=== PATIENT | male | born 1975 | race African-American/Black ===

== ENCOUNTER 2017-07-29 15:29 | Emergency (ER) | payer OTHER ==
[~2017-07-29] VITALS: Ht 198.1 cm; Wt 122.5 kg
[2017-07-29 15:58] LABS: MCH 31.5 PG (29.0-34.0); MCHC 33.6 G/DL (30.0-36.0); MEAN PLAT.VOLUME 9.2 uM^3 (9.0-12.4); PLATELET COUNT 257 K/uL (156-360); RBC DIS.WIDTH-CV 12.8 % (11.8-14.6); RBC DIS.WIDTH-SD 44.5 % (39-53); RED BLOOD COUNT 4.47 M/uL (4.00-5.50); WHITE BLOOD COUNT 6.9 K/uL (4.1-10.2)
[2017-07-29 16:08] LABS: CHLORIDE 108 mEq/L (99-109); POTASSIUM 3.9 mEq/L (3.7-5.4); SODIUM 142 mEq/L (136-147)
[2017-07-29 16:10] LABS: GLUCOSE 111 mg/dL (70-99)
[2017-07-29 16:11] LABS: ANION GAP 9 MEQ/L (2-14)
[2017-07-29 16:14] LABS: UREA NITROGEN (BUN) 14 mg/dL (9-23)
[2017-07-29 16:16] LABS: GFR ESTIMATE (CALCULATED) > 59 mL/min/
[2017-07-29] MEDS ORDERED: ANUSOL HC,ANUCO25 MG PR (17:42)
[2017-07-29] MEDS ORDERED: MIRALAX255 GM PO (17:42)
[2017-07-29 18:14] VITALS: BP 136/79
[2017-08-03 09:12] LABS: POC NON-PRINT COM 1 ND
== END 2017-07-29 18:15 | disposition home or self-care (01) ==
LOC: EME 15:29
PROVIDERS: Physician Assistant
DX: K62.5 Hemorrhage of anus and rectum (principal); K64.9 Unspecified hemorrhoids; K59.00 Constipation, unspecified; F17.200 Nicotine dependence, unspecified, uncomplicated
CPT/HCPCS: 74000; 80048; 82272; 85027; 86850; 86900; 86901; 99281; 99284

== ENCOUNTER 2017-09-02 16:48 | Emergency (ER) | payer OTHER ==
[~2017-09-02] VITALS: Ht 200.7 cm; Wt 124.7 kg
[~2017-09-02 16:48] MED LIST: ANUSOL HC,ANUCO25 MG PR; MIRALAX255 GM PO
[2017-09-02 17:18] LABS: ADD MIUA? NO; BILIRUBIN NEGATIVE; BLOOD NEGATIVE; COLOR YELLOW ((YELLOW)); GLUCOSE (STRIP) NEGATIVE; KETONES NEGATIVE; LEUKOCYTES NEGATIVE; NITRITE NEGATIVE; PROTEIN (STRIP) NEGATIVE; SPECIFIC GRAVITY 1.025 (1.000-1.030); UCUL ADDED? NO
[2017-09-02 17:19] LABS: HEMATOCRIT 39.4 % (38.0-50.0); MCH 31.8 PG (29.0-34.0); MCHC 33.5 G/DL (30.0-36.0); MCV 94.9 FL (86-99); MEAN PLAT.VOLUME 9.3 uM^3 (9.0-12.4); PLATELET COUNT 248 K/uL (156-360); RBC DIS.WIDTH-CV 12.1 % (11.8-14.6); RBC DIS.WIDTH-SD 42.6 % (39-53); RED BLOOD COUNT 4.15 M/uL (4.00-5.50); WHITE BLOOD COUNT 4.5 K/uL (4.1-10.2)
[2017-09-02 17:26] LABS: CHLORIDE 112 mEq/L (99-109); POTASSIUM 4.2 mEq/L (3.7-5.4); SODIUM 143 mEq/L (136-147)
[2017-09-02 17:28] LABS: GLUCOSE 118 mg/dL (70-99)
[2017-09-02 17:29] LABS: ANION GAP 9 MEQ/L (2-14)
[2017-09-02 17:32] LABS: GFR ESTIMATE (CALCULATED) > 59 mL/min/
[2017-09-02 17:33] LABS: UREA NITROGEN (BUN) 15 mg/dL (9-23)
[2017-09-02] MEDS ORDERED: FLEXERIL10 MG PO (18:53)
[2017-09-02] MEDS ORDERED: MOTRIN600 MG PO (18:53)
[2017-09-02 19:05] VITALS: BP 141/71
== END 2017-09-02 19:06 | disposition home or self-care (01) ==
LOC: EME 16:48
PROVIDERS: Physician Assistant
DX: M54.5 Low back pain (principal); K62.5 Hemorrhage of anus and rectum; R10.32 Left lower quadrant pain; I10 Essential (primary) hypertension; D57.3 Sickle-cell trait; F17.200 Nicotine dependence, unspecified, uncomplicated
CPT/HCPCS: 74176; 80048; 81003; 85027; 99281; 99284

== ENCOUNTER 2017-11-16 11:27 | Emergency (ER) | payer OTHER ==
[~2017-11-16] VITALS: Ht 198.1 cm; Wt 131.1 kg
[~2017-11-16 11:27] MED LIST changes: +FLEXERIL10 MG PO; +MOTRIN600 MG PO
[2017-11-16] MEDS ORDERED: [UNRECOGNIZED DRUG - OTHER] (13:21)
[2017-11-16] MEDS ORDERED: ANTIDEPRESSANT (13:21)
[2017-11-16 14:19] LABS: SOURCE URINE
[2017-11-16 14:56] LABS: APPEARANCE SL.HAZY ((CLEAR)); BILIRUBIN NEGATIVE; BLOOD NEGATIVE; COLOR YELLOW ((YELLOW)); GLUCOSE (STRIP) NEGATIVE; KETONES NEGATIVE; LEUKOCYTES NEGATIVE; NITRITE NEGATIVE; PROTEIN (STRIP) NEGATIVE; SPECIFIC GRAVITY 1.024 (1.000-1.030); UROBILINOGEN 0.2 MG/DL (0.2-1.0)
[2017-11-16 15:01] LABS: BACTERIA NONE SEEN /HPF; EPITHELIAL CELLS RARE /HPF; MUCUS 1+ /LPF; RED BLOOD CELLS 0-5 /HPF (0-5); UCUL ADDED? NO; WHITE BLOOD CELLS 0-5 /HPF (0-5)
[2017-11-16] MEDS ORDERED: FLONASE16 G1 BOTH NARES (15:13)
[2017-11-16] MEDS ORDERED: NAPROSYN500 MG PO (15:13)
[2017-11-16] MEDS ORDERED: GUAIFENESIN600 M1 PO (15:13)
[2017-11-16 15:21] VITALS: BP 134/84
[2017-11-17 12:51] LABS: CHLAMYDIA TRACHOMATIS NEGATIVE; NEISSERIA GONORRHOEAE NEGATIVE
== END 2017-11-16 15:22 | disposition home or self-care (01) ==
LOC: EME 11:27
PROVIDERS: Nurse Practitioner Family
DX: J20.8 Acute bronchitis due to other specified organisms (principal); Z11.3 Encounter for screening for infections with a predominantly sexual mode of transmission; F17.200 Nicotine dependence, unspecified, uncomplicated; F32.9 Major depressive disorder, single episode, unspecified
CPT/HCPCS: 71046; 81003; 87491; 87591; 99281; 99284

== ENCOUNTER 2018-03-24 17:50 | Emergency (ER) | payer OTHER ==
[~2018-03-24] VITALS: Ht 200.7 cm; Wt 125.3 kg
[~2018-03-24 17:50] MED LIST changes: +ANTIDEPRESSANT; +FLONASE16 G1 BOTH NARES; +GUAIFENESIN600 M1 PO; +NAPROSYN500 MG PO; +[UNRECOGNIZED DRUG - OTHER]
[2018-03-24 20:16] VITALS: BP 135/88
== END 2018-03-24 20:16 | disposition home or self-care (01) ==
LOC: EME 17:50
PROC: 0HQDXZZ Repair Right Lower Arm Skin, External Approach (ICD-10-PCS; principal; 2018-03-24)
DX: S51.811A Laceration without foreign body of right forearm, initial encounter (principal); W22.8XXA Striking against or struck by other objects, initial encounter; F17.200 Nicotine dependence, unspecified, uncomplicated
CPT/HCPCS: 99281; 99284

== ENCOUNTER 2018-03-30 14:11 | Emergency (ER) | payer OTHER ==
[~2018-03-30] VITALS: Ht 200.7 cm; Wt 124.3 kg
[2018-03-30 14:46] VITALS: BP 143/96
== END 2018-03-30 14:42 | disposition home or self-care (01) ==
LOC: RME 14:11 → EME 14:11 → RME 14:42
DX: S51.811D Laceration without foreign body of right forearm, subsequent encounter (principal); Z48.02 Encounter for removal of sutures; W45.8XXD Other foreign body or object entering through skin, subsequent encounter; F17.200 Nicotine dependence, unspecified, uncomplicated
CPT/HCPCS: 99281; 99283